=== PATIENT | male | born 1955 | race Caucasian/White ===

== ENCOUNTER 2016-09-12 22:57 | Observation (INO) ==
[2016-09-12] MEDS ORDERED: SODIUM CHLORIDE 0.9% 1,000 ML IV STA (23:43)
[2016-09-12] MEDS ORDERED: ONDANSETRON 4 MG/2 ML VIAL IV STA (23:43)
[2016-09-12] MEDS ORDERED: MORPHINE 2 MG/1 ML SYRINGE IV STA (23:43)
--- NOTE | 2016-09-12 23:46 | Emergency Department Note ---
Arrival - Arrival Chief Complaint: Abdominal / Flank Pain Stated Complaint: STOMACH PAIN RIGHT SIDE BACK RIGHT SIDE ED Nursing Triage Note: C/O RUQ abd pain radiating into back. Onset lastnight after eating then it when away. Pt reports that he ate summer sausage tonight and the pain started again. Last BM-this morning +nausea/vomiting. Mode of Arrival: Ambulatory Time Seen by Provider: 09/12/16 23:43 - History of Present Illness HPI Narrative: Patient complains of midepigastric pain radiating through to the back. He states this happened last night after he ate a salad. Additionally he had a similar episode today after eating a meal. When he had the pain exacerbate he had associated diaphoresis and some nausea. The patient still has a gallbladder. He has not noted any fever. Allergies/Adverse Reactions: Allergies Allergy/AdvReac Type Severity Reaction Status Date / Time naproxen [From Aleve] Allergy Intermediate RASH Verified 09/12/16 23:10 Home Medications: Home Medications Medication Instructions Recorded Confirmed Type No Known Home Medications [No 09/12/16 09/12/16 History Known Home Medications] Review of System - Review of System 12 point system: reviewed and no additional remarkable complaints except as stated Medical,Surgical,& Family Hx - Medical History Cardio: No history of: Hypertension Endocrine: No history of: Diabetes Mellitus (IDDM) - Social History Smoking Status: Never smoker Frequency of Alcohol Use: None Type of Drug Use: None Exam Physical Examination: General: Patient is well-developed and well-nourished with no acute distress noted. HEENT: The extraocular muscles are intact. Oropharynx is moist. There is no erythema or exudate. The tympanic membranes are shiny bilaterally. Neck: There is no adenopathy. Full range of motion is noted without pain. The trachea is midline. No JVD is present. Lungs: There is normal excursion of the chest with the lungs sounding clear bilaterally. No subcostal retractions are present. There is no point tenderness present. Heart: The heart has a regular rate and rhythm with no gallops or murmurs. Abdomen: The abdomen is nontender and nondistended with no rebound, guarding, or masses. Bowel sounds are normal. Back: The back demonstrates a normal appearance with no evidence of trauma. Genitourinary: Not examined. Extremities: The extremities demonstrate no clubbing, cyanosis, or edema. The visualized range of motion is normal. They appear atraumatic. Neuro: Cranial nerves II through XII are checked and intact. There is no focal motor or sensory deficit seen in the extremities. Skin: Skin is warm and dry with no evidence of rash. Vital Signs: Vital Signs Temperature 97.8 F 09/12/16 23:23 Pulse Rate 60 09/12/16 23:23 Respiratory Rate 18 09/12/16 23:23 Blood Pressure 158/106 09/12/16 23:23 O2 Sat by Pulse Oximetry 97 09/12/16 23:10 Course - Reevaluation(s) Reevaluation #1: The patient's pain is intermittent. Currently he says his pain is pretty good. This the first episode of pancreatitis he has had. He does confirm again that he does drink occasionally which is most likely the etiology is pancreatitis. Going to admit him for observation admission. Time: 01:47 - Consultations Consultation #1: Dr. Cullen Tucker will evaluate and admit the patient to observation. Time: 01:51 Results - Labs CBC & BMP: 09/12/16 23:40 09/12/16 23:40 Lab Results: I have reviewed the patients labs Labs: Lab Results WBC 13.4 T/CUMM (4-12) H 09/12/16 23:40 RBC 4.79 MC/CUMM (3.8-5.5) 09/12/16 23:40 Hgb 15.0 GM/DL (14.0-18.0) 09/12/16 23:40 Hct 45.0 VOL% (42.0-52.0) 09/12/16 23:40 MCV 93.9 FL (87-102) 09/12/16 23:40 MCH 31 PG (27-34) 09/12/16 23:40 MCHC 33.3 GM/DL (32-36) 09/12/16 23:40 RDW 13.5 % (9.3-17.3) 09/12/16 23:40 Plt Count 289 T/CUMM (130-400) 09/12/16 23:40 MPV 9.7 FL (9.6-12.0) 09/12/16 23:40 Neut % (Auto) 90.4 % (38.7-73.9) H 09/12/16 23:40 Lymph % (Auto) 5.5 % (21.2-54.2) L 09/12/16 23:40 Charlton % (Auto) 3.5 % (1.7-12.7) 09/12/16 23:40 Eos % (Auto) 0.0 % (0.00-10.9) 09/12/16 23:40 Baso % (Auto) 0.2 % (0.0-0.8) 09/12/16 23:40 Neut # (Auto) 12.1 10*3/uL (1.4-7.4) H 09/12/16 23:40 Lymph # (Auto) 0.7 10*3/uL (1.4-4.0) L 09/12/16 23:40 Charlton # (Auto) 0.5 10*3/uL (0.11-0.8) 09/12/16 23:40 Eos # (Auto) 0.0 10*3/uL (0.0-0.87) 09/12/16 23:40 Baso # (Auto) 0.0 10*3/uL (0.0-0.2) 09/12/16 23:40 Immature Gran % 0.4 % 09/12/16 23:40 Nucleated RBC % 0.0 /100WBC 09/12/16 23:40 Immature Gran # 0.05 # 09/12/16 23:40 Nucleated RBCs # 0.00 10*3/uL 09/12/16 23:40 Sodium 140 MMOL/L (136-145) 09/12/16 23:40 Potassium 3.9 MMOL/L (3.5-5.1) 09/12/16 23:40 Chloride 105 MMOL/L (98-107) 09/12/16 23:40 Carbon Dioxide 29 MMOL/L (21-32) 09/12/16 23:40 Anion Gap 9.9 MMOL/L (5.0-15.0) 09/12/16 23:40 BUN 21 MG/DL (7-18) H 09/12/16 23:40 Creatinine 2.00 MG/DL (0.70-1.30) H 09/12/16 23:40 GFR Calculation 43 ML/MIN 09/12/16 23:40 BUN/Creatinine Ratio 10.00 RATIO (6.00-20.00) 09/12/16 23:40 Glucose 137 MG/DL (74-106) H 09/12/16 23:40 Calculated Osmolality 283.4 MOS/KG (273-304) 09/12/16 23:40 Calcium 8.6 MG/DL (8.5-10.1) 09/12/16 23:40 Magnesium 2.3 MG/DL (1.8-2.4) 09/12/16 23:40 Total Bilirubin 0.50 MG/DL (0.2-1.0) 09/12/16 23:40 AST 36 U/L (0-37) 09/12/16 23:40 ALT 41 U/L (16-61) 09/12/16 23:40 Alkaline Phosphatase 76 U/L (45-117) 09/12/16 23:40 Troponin I < 0.015 NG/ML (0.00-0.045) 09/12/16 23:40 Total Protein 8.1 G/DL (6.4-8.3) 09/12/16 23:40 Albumin 4.4 G/DL (3.4-5.0) 09/12/16 23:40 Globulin 3.7 G/DL (2.3-3.5) H 09/12/16 23:40 Albumin/Globulin Ratio 1.1 RATIO (1.1-2.2) 09/12/16 23:40 Amylase 155 U/L (25-115) H 09/12/16 23:40 Lipase 689.0 U/L (73-393) H 09/12/16 23:40 - Diagnostic Findings Procedure: Ultrasound: image reviewed by me (GB U/S neg jimmy Nuñez) Disposition Clinical Impression: Acute pancreatitis Case discussed with: patient, patient's family Disposition: Disch To Home/Self Care Condition: Stable Instructions: Pancreatitis (ED) Time of Disposition: 01:47
[2016-09-12 23:50] LABS: Basophils % 0.2 % (0.0-0.8); Immature Granulocytes % 0.4 %; Immature Granulocytes Absolute 0.05 #; Lymphocytes # 0.7 10*3/uL (1.4-4.0); Lymphocytes % 5.5 % (21.2-54.2); Mean Corpuscular HGB Conc 33.3 GM/DL (32-36); Mean Corpuscular Hemoglobin 31 PG (27-34); Mean Corpuscular Volume 93.9 FL (87-102); Mean Platelet Volume 9.7 FL (9.6-12.0); Monocytes # 0.5 10*3/uL (0.11-0.8); Monocytes % 3.5 % (1.7-12.7); Neutrophils # 12.1 10*3/uL (1.4-7.4); Neutrophils % 90.4 % (38.7-73.9); Platelet Count 289 T/CUMM (130-400); Red Blood Count 4.79 MC/CUMM (3.8-5.5); Red Cell Distribution Width 13.5 % (9.3-17.3); White Blood Count 13.4 T/CUMM (4-12)
[2016-09-12] MEDS ORDERED: ONDANSETRON 4 MG/2 ML VIAL ONE (23:51)
[2016-09-12] MEDS ORDERED: MORPHINE 2 MG/1 ML SYRINGE ONE (23:51)
[2016-09-13 00:32] LABS: Alanine Aminotransferase 41 U/L (16-61); Albumin 4.4 G/DL (3.4-5.0); Alkaline Phosphatase 76 U/L (45-117); Amylase 155 U/L (25-115); Aspartate Amino Transferase 36 U/L (0-37); Blood Urea Nitrogen 21 MG/DL (7-18); Calcium 8.6 MG/DL (8.5-10.1); Glucose 137 MG/DL (74-106); Magnesium 2.3 MG/DL (1.8-2.4); Osmolality,Calculated 283.4 MOS/KG (273-304); Potassium 3.9 MMOL/L (3.5-5.1); Sodium 140 MMOL/L (136-145); Total Protein 8.1 G/DL (6.4-8.3); Troponin I Only < 0.015 NG/ML (0.00-0.045)
[2016-09-13] MEDS ORDERED: ACETAMINOPHEN 325 MG TABLET PO PRN (02:30)
[2016-09-13] MEDS ORDERED: ONDANSETRON 4 MG/2 ML VIAL IV PRN (02:30)
[2016-09-13] MEDS ORDERED: BISACODYL 5 MG TABLET PO PRN (02:30)
[2016-09-13] MEDS ORDERED: MORPHINE 2 MG/1 ML SYRINGE IV PRN (02:30)
--- NOTE | 2016-09-13 02:34 | Hospitalist History & Physical ---
Assessment and Plan (1) Acute pancreatitis Status: Acute Current Visit: Yes Qualifiers: Pancreatitis type: unspecified pancreatitis type Acute pancreatitis complication: unspecified Qualified Code(s): K85.90 - Acute pancreatitis without necrosis or infection, unspecified (2) Elevated serum creatinine Status: Acute Assessment and plan: Plan: Supportive care for acute pancreatitis, suspect alcohol related. Will check lipid panel to rule out hypertriglyceridemia. Patient on no medications at home Patient with elevated serum creatinine, will see if this returns to normal with hydration. Current Visit: Yes History of Present Illness Chief complaint: Abdominal pain 2 days History of present illness: Mr. Robert is a 60 year old male who presents with episodic abdominal pain over the last 2 days. Yesterday he had pain following a meal the pain subsided. Today he had "heavy meal," along with Sush[employer] hard lemonade, and " felt pretty awful a couple hours later." In that he reports having diffuse bandlike abdominal tenderness, nausea, and the urge to have a bowel movement without success. He took 2 laxatives suppositories with minimal relief. He rated his pain 6 out of 10 at worst, which is responded well to pain medication in the ER. His labs and clinical presentation were consistent with acute pancreatitis. He does not take any medications, has no history of hyperlipidemia, and denies history of gallstones. He states he drinks alcohol very rarely, reports having half a beer maybe every 2 weeks. He did have an alcoholic drink today preceding his symptoms. He does not know if he has hyperlipidemia. His symptoms have been worsening and became severe prompting him to come to the hospital. He denies vomiting, chest pain, shortness of breath, fever, weight loss. Ultrasound performed in the ER did not show any ductal dilatation, or gallstones. Home Medications Medication Instructions Recorded Confirmed Type No Known Home Medications [No 09/12/16 09/12/16 History Known Home Medications] Allergies Allergy/AdvReac Type Severity Reaction Status Date / Time naproxen [From Aleve] Allergy Intermediate RASH Verified 09/12/16 23:10 Medical,Surgical,& Family Hx - Medical History Cardio: No history of: Hypertension Endocrine: No history of: Diabetes Mellitus (IDDM) Respiratory: No history of: COPD Gastrointestinal: No history of: GERD - Surgical History Additional Surgical History: No prior surgery - Social History Smoking Status: Never smoker Frequency of Alcohol Use: Occasionally Type of Drug Use: None Marital Status: Lives With:: Spouse Functional capacity: independent ambulation Review of systems: A 12 point review of systems is negative except as specified in the HPI Exam - Constitutional Vitals: Period Temp Pulse Resp BP Sys/[place] Pulse Ox Last 24 Hr 97.8 F-97.8 F 58-60 17-20 158-169/83-106 97-98 Exam: EXAM: CONSTITUTIONAL: non toxic, NAD HEENT: NC, AT, OP benign, MOMO, EOMI CV: RRR no m/g/r RESP: clear B/L, no w/r/r GI: abd soft, minimal bandlike tenderness about the abdomen, ND, +bowel sounds INTEGUMENTARY: no lesions or rash EXTREMITIES: no c/c/e NEURO: no focal deficits PSYCH: unremarkable, A/O x3 Results - Labs CBC & BMP: 09/12/16 23:40 09/12/16 23:40 Lab Results: I have reviewed the past 24 hour labs - Diagnostic Findings Procedure: Ultrasound: image reviewed by me, report reviewed by me
[2016-09-13] MEDS ORDERED: CYCLOBENZAPRINE 10 MG TABLET ONE (02:36)
[2016-09-13] MEDS ORDERED: CYCLOBENZAPRINE 10 MG TABLET PO STA (02:36)
[2016-09-13] MEDS: SODIUM CHLORIDE 0.9% 1,000 ML IV SCH ×2 (05:08→14:56)
[2016-09-13 05:38] LABS: Basophils % 0.2 % (0.0-0.8); Hematocrit 43.4 VOL% (42.0-52.0); Hemoglobin 14.4 GM/DL (14.0-18.0); Immature Granulocytes % 0.3 %; Immature Granulocytes Absolute 0.04 #; Lymphocytes # 0.8 10*3/uL (1.4-4.0); Mean Corpuscular HGB Conc 33.2 GM/DL (32-36); Mean Corpuscular Hemoglobin 31 PG (27-34); Mean Corpuscular Volume 94.3 FL (87-102); Mean Platelet Volume 10.4 FL (9.6-12.0); Monocytes # 0.9 10*3/uL (0.11-0.8); Monocytes % 6.8 % (1.7-12.7); Neutrophils # 11.9 10*3/uL (1.4-7.4); Neutrophils % 86.7 % (38.7-73.9); Platelet Count 295 T/CUMM (130-400); Red Cell Distribution Width 13.8 % (9.3-17.3); White Blood Count 13.8 T/CUMM (4-12)
[2016-09-13 06:14] LABS: Albumin 4.1 G/DL (3.4-5.0); Bilirubin,Total 0.7 MG/DL (0.2-1.0); Calcium 8.4 MG/DL (8.5-10.1); Osmolality,Calculated 281.4 MOS/KG (273-304); Potassium 4.5 MMOL/L (3.5-5.1); Risk Ratio 2.62; Total Protein 7.7 G/DL (6.4-8.3); VLDL CHOLESTEROL 10.2 MG/DL
--- NOTE | 2016-09-13 06:55 | Ultrasound Report ---
History is biliary colic The liver is 13.5 cm in length. There is slight increased hepatic echogenicity with only minimal attenuation of the ultrasound beam No gallstones or biliary ductal dilatation seen No right renal hydronephrosis seen The visualized pancreas and proximal IVC and aorta are normal in size Impression: Questionable mild fatty infiltration of the liver PROCEDURE INTERPRETED AT [facility] DEPARTMENT OF RADIOLOGY Final Report Signed by: Dr. Narcisa Dubois
--- NOTE | 2016-09-13 07:23 | XRay Report ---
Referring Physician: Juan Ruiz Exam: XR abdomen 1V Date: September 12, 2016 at 11:46 PM Reason: Generalized abdominal pain Comparison: None Findings: There is no evidence of bowel obstruction or free air. No definite renal calculi are identified. Note is made of pelvic phleboliths. There is degenerative change at the spine, but no acute osseous process is seen. Impression: No acute abdominal process is identified. PROCEDURE INTERPRETED AT [facility] DEPARTMENT OF RADIOLOGY Final Report Signed by: Dr. Crystal Hammond
[2016-09-13] MEDS: ENOXAPARIN 40 MG/0.4 ML SYRINGE SUBCUT SCH (08:55)
[2016-09-13] MEDS: PANTOPRAZOLE 40 MG TABLET PO SCH (08:55)
[2016-09-14 07:53] VITALS: BP 107/59
[2016-09-14] MEDS: PANTOPRAZOLE 40 MG TABLET PO SCH (08:36)
[2016-09-14] MEDS: ENOXAPARIN 40 MG/0.4 ML SYRINGE SUBCUT SCH (08:36)
[2016-09-14] MEDS: SODIUM CHLORIDE 0.9% 1,000 ML IV SCH (08:38)
--- NOTE | 2016-09-14 09:29 | Discharge Summary ---
Hospital Course - Hospital Course Hospital Course: Mr Robert presented with acute abdominal pain, nausea and vomiting. He had acute pancreatitis and his symptoms/elevated lipase resolved with bowel rest and supportive care. He is tolerating a regular diet. His gallbladder US showed no gallstones or ductal dilatation, but possible mild fatty liver. He rarely drinks though he had had one [employer] Hard Lemonade the day this episode started. The cause of his pancreatitis is unknown at this point and I have advised him to avoid alcohol, eat a more healthy diet and follow up with a PCP- he would like to see Dr Fernandez and we will make that appointment. I have also given him a prescription for Protonix in case GERD is part of his abdominal pain pattern. In addition, he has CKD with creatinine of 2.0. He will see DR Stauffer in clinic as a new patient and have outpatient renal US prior to that appointment with the results to DR Fernandez and Dr Stauffer. I discussed these plans with the patient and his and their questions have been answered. He is feeling good and is ready for discharge. - Time spent with patient Time with patient DS: Greater than 30 minutes (examiniation and discussoin with patient and family, medicine reconciliation, documentation, discharge planning.) Diagnosis - Discharge Diagnosis (1) Acute pancreatitis Status: Acute (2) CKD (chronic kidney disease) stage 3, GFR 30-59 ml/min Status: Chronic (3) GERD (gastroesophageal reflux disease) Status: Suspected Specialty Discharge - Follow Up or Referrals Follow up with: Robby Stauffer Jr., MD [Physician] - 10/01/16 10:30 am (chronic kidney disease ) Demian Fernandez DO [Physician] - 09/25/16 10:30 am (1-2 weeks ) Discharge Plan - Discharge Data Disposition: Disch To Home/Self Care Condition at Discharge: Stable Discharge Diet: advance to your usual diet, heart healthy, low fat, low cholesterol Activity: resume usual activities as tolerated - Discharge Medications Continue Pantoprazole Tab [Protonix Tab] 40 mg PO DAILY #30 tablet - Follow Up or Referral Follow Up: Robby Stauffer Jr., MD [Physician] - 10/01/16 10:30 am (chronic kidney disease ) Demian Fernandez DO [Physician] - 09/25/16 10:30 am (1-2 weeks ) - Forms/Instructions Instructions: Pancreatitis (ED) Additional Discharge Instructions: renal ultrasound as outpatient, results to Dr Stauffer Exam - Constitutional Vitals: Period Temp Pulse Resp BP Sys/[place] Pulse Ox Last 24 Hr 97.1 F-98.6 F 56-62 18-21 91-129/50-66 94-98 General appearance: normal weight, no acute distress - Head Head exam: Present: normocephalic, atraumatic - Eye Eye exam: Present: EOMI. Absent: scleral icterus - Respiratory Respiratory exam: Present: clear to auscultation bilaterally - Cardiovascular Cardiovascular exam: Present: regular rate and rhythm - GI/Abdominal GI/Abdominal exam: Present: normal bowel sounds, soft. Absent: tenderness - Extremities Exam Extremities exam: Absent: edema - Neurological Exam Neurological exam: Present: alert, oriented X3 - Skin Skin exam: Present: warm, dry DS: Provider Date of admission: 09/13/16 02:30 Primary care physician: . No PCP Attending physician on admission: Maggi Cherry MD Discharging clinician: Maggi Cherry MD
== END 2016-09-14 10:49 | disposition home or self-care (01) ==
LOC: N.ED 22:57 → N.EDINP 22:57 → N.3E 09-13 04:04
PROVIDERS: ADMIT Internal Medicine; ATTEND Internal Medicine